=== PATIENT | female | born 1945 | race American Indian/Alaskan Native ===

== ENCOUNTER 2021-02-21 02:44 | Emergency (ER) | payer MEDICARE ==
[2021-02-21 03:48] LABS: Basophils # (Auto) 0.1 K/mm3 (0.0-0.1); Basophils % (Auto) 0.8 % (0.0-1.8); Eosinophils # (Auto) 0.3 K/mm3 (0.0-0.4); Eosinophils % (Auto) 4.9 % (0.0-4.3); Hematocrit 32.1 % (30.3-42.9); Hemoglobin 10.2 gm/dl (10.1-14.3); Lymphocytes # (Auto) 1.3 K/mm3 (1.2-5.4); Lymphocytes % (Auto) 19.3 % (13.4-35.0); Mean Corpuscular HGB Conc 32 % (30-34); Mean Corpuscular Volume 95 fl (79-97); Monocytes # (Auto) 0.7 K/mm3 (0.0-0.8); Monocytes % (Auto) 10.7 % (0.0-7.3); Platelet Count 247 K/mm3 (140-440); Red Blood Count 3.39 M/mm3 (3.65-5.03); Red Cell Distribution Width 15.7 % (13.2-15.2)
[2021-02-21 04:11] LABS: Albumin 4.1 g/dL (3.9-5); Calcium 9.1 mg/dL (8.4-10.2)
[2021-02-21] MEDS ORDERED: SODIUM CHLORIDE 0.9% 500 ML 500 ML IV ONE (04:58)
--- NOTE | 2021-02-21 05:42 | XRay Report ---
CHEST 2 VIEWS INDICATION / CLINICAL INFORMATION: bilat le edema. COMPARISON: None available. FINDINGS: SUPPORT DEVICES: A left pacemaker is in good position. HEART / MEDIASTINUM: Mild cardiomegaly without other significant abnormalities. LUNGS / PLEURA: There are generalized bilateral interstitial opacities. No significant pleural effusi on. No pneumothorax. ADDITIONAL FINDINGS: No significant additional findings. IMPRESSION: 1. Suspected mild interstitial edema. 2. Mild cardiomegaly. Signer Name: Bertin Ly MD Signed: 02/21/2021 5:37 AM Workstation Name: [id number]
--- NOTE | 2021-02-21 07:43 | Emergency Department Report ---
ED Extremity Problem HPI - General Chief complaint: Extremity Injury, Lower Stated complaint: LEG PAIN Time Seen by Provider: 02/21/21 07:25 Source: patient, EMS Mode of arrival: Stretcher Limitations: No Limitations - History of Present Illness Initial comments: 75-year-old female, history of hypertension, dementia, presents to ED with bilateral leg pain. Patient states "I get this every now and then." Patient states she has a sensation of [id number] going up and down her entire leg, bilaterally. Patient states this has been happening off and on for "years." She states she told her daughter that she was having the pain, so her daughter called 911 and an ambulance transported her here. Patient states she did not take anything for pain at home. I asked patient what usually helps her pain, patient states, "Usually I just wait for it to go away." Patient has no other complaints. She denies any falls or trauma to the lower extremities. Patient states she is ambulatory. MD Complaint: extremity pain -: days(s) (1) Location: bilateral lower extremity History of Same: Yes -: No arthralgia, No fever, No associated dyspnea, No associated chest pain Quality: other (pins and needles) Consistency: intermittent Improves with: nothing Worsens with: nothing Associated Symptoms: denies other symptoms. denies: chest pain, shortness of breath, fever, arthralgias - Related Data Home Medications Medication Instructions Recorded Confirmed Last Taken Cetirizine HCl [ZyrTEC 10mg cap] 10 mg PO QDAY 02/21/21 02/21/21 Unknown Cholecalciferol Vit D3 [Vitamin D3 1,000 unit PO QDAY 02/21/21 02/21/21 Unknown 1,000 UNIT TAB] Donepezil HCl [Donepezil HCl Odt] 10 mg PO QDAY 02/21/21 02/21/21 Unknown Escitalopram Oxalate [Lexapro] 20 mg PO QDAY 02/21/21 02/21/21 Unknown Losartan [Cozaar] 100 mg PO QDAY 02/21/21 02/21/21 Unknown Metoprolol Tartrate [Lopressor] 50 mg PO BID 02/21/21 02/21/21 Unknown Potassium Chloride 10 meq PO QDAY 02/21/21 02/21/21 Unknown Valsartan [Diovan] 40 mg PO QDAY 02/21/21 02/21/21 Unknown amLODIPine [Norvasc] 10 mg PO DAILY 02/21/21 02/21/21 Unknown traZODone [Desyrel] 50 mg PO QHS 02/21/21 02/21/21 Unknown Previous Rx's Medication Instructions Recorded Last Taken Type Naproxen [Naprosyn] 500 mg PO BID #20 tablet 02/21/21 Unknown Rx Allergies Allergy/AdvReac Type Severity Reaction Status Date / Time No Known Allergies Allergy Unverified 02/21/21 03:07 ED Review of Systems ROS: Stated complaint: LEG PAIN Other details as noted in HPI Comment: All other systems reviewed and negative Constitutional: denies: chills, fever Respiratory: denies: shortness of breath Cardiovascular: denies: chest pain Musculoskeletal: as per HPI Neurological: denies: weakness ED Past Medical Hx - Past Medical History Hx Hypertension: Yes Hx Congestive Heart Failure: Yes Hx Diabetes: Yes - Surgical History Additional Surgical History: abdominal surgery, bilateral leg fx - Social History Smoking Status: Never Smoker - Medications Home Medications: Home Medications Medication Instructions Recorded Confirmed Last Taken Type Cetirizine HCl [ZyrTEC 10mg cap] 10 mg PO QDAY 02/21/21 02/21/21 Unknown History Cholecalciferol Vit D3 [Vitamin D3 1,000 unit PO QDAY 02/21/21 02/21/21 Unknown History 1,000 UNIT TAB] Donepezil HCl [Donepezil HCl Odt] 10 mg PO QDAY 02/21/21 02/21/21 Unknown Histor y Escitalopram Oxalate [Lexapro] 20 mg PO QDAY 02/21/21 02/21/21 Unknown History Losartan [Cozaar] 100 mg PO QDAY 02/21/21 02/21/21 Unknown History Metoprolol Tartrate [Lopressor] 50 mg PO BID 02/21/21 02/21/21 Unknown History Naproxen [Naprosyn] 500 mg PO BID #20 tablet 02/21/21 Unknown Rx Potassium Chloride 10 meq PO QDAY 02/21/21 02/21/21 Unknown History Valsartan [Diovan] 40 mg PO QDAY 02/21/21 02/21/21 Unknown History amLODIPine [Norvasc] 10 mg PO DAILY 02/21/21 02/21/21 Unknown History traZODone [Desyrel] 50 mg PO QHS 02/21/21 02/21/21 Unknown History ED Physical Exam - General Limitations: No Limitations General appearance: alert, in no apparent distress, obese - Head Head exam: Present: atraumatic, normocephalic - Eye Eye exam: Present: normal appearance, EOMI - ENT ENT exam: Present: mucous membranes moist - Neck Neck exam: Present: normal inspection - Respiratory Respiratory exam: Present: normal lung sounds bilaterally. Absent: respiratory distress - Cardiovascular Cardiovascular Exam: Present: regular rate, normal rhythm - GI/Abdominal GI/Abdominal exam: Present: soft. Absent: distended, tenderness - Extremities Exam Extremities exam: Present: normal inspection, full ROM, other (Patient ambulates without difficulty). Absent: tenderness, joint swelling, calf tenderness - Neurological Exam Neurological exam: Present: alert, oriented X3, normal gait - Psychiatric Psychiatric exam: Present: normal affect, normal mood - Skin Skin exam: Present: warm, dry, intact, normal color ED Course Vital Signs 02/21/21 02/21/21 02/21/21 03:11 06:35 06:45 Temperature 98.2 F 98.1 F Pulse Rate 71 60 Respiratory 16 11 L Rate Blood Pressure 154/97 183/98 O2 Sat by Pulse 96 99 Oximetry 02/21/21 02/21/21 02/21/21 07:01 07:31 08:01 Temperature Pulse Rate 60 60 60 Respiratory 15 14 Rate Blood Pressure 166/89 166/89 165/90 O2 Sat by Pulse 100 100 99 Oximetry 02/21/21 08:31 Temperature Pulse Rate 62 Respiratory 12 Rate Blood Pressure 170/91 O2 Sat by Pulse 99 Oximetry ED Medical Decision Making - Lab Data Result diagrams: 02/21/21 03:20 02/21/21 03:20 - EKG Data -: EKG Interpreted by [facility] EKG shows normal: sinus rhythm, axis, intervals, QRS complexes, ST-T waves Rate: normal - EKG Data Interpretation: no acute changes - Radiology Data Radiology results: report reviewed, image reviewed - Medical Decision Making 75-year-old female with pain to bilateral legs, described as [id number] sensation. Patient states it is not uncommon for her to get this pain in her legs. Work-up is unremarkable. Patient is ambulatory without assistance, walked to the bathroom and back. Patient given Motrin here in the ED. She will be discharged at this time. Outpatient follow-up advised, return precautions given. Critical care attestation.: If time is entered above; I have spent that time in minutes in the direct care of this critically ill patient, excluding procedure time. ED Disposition Clinical Impression: Lower extremity pain, bilateral Disposition: TO HOME OR SELFCARE Is pt being admited?: No Condition: Stable Instructions: Pain Without a Known Cause Prescriptions: Naproxen [Naprosyn] 500 mg PO BID #20 tablet Referrals: RODERICK VAUGHN MD [Primary Care Provider] - 3-5 Days [facility] [Provider Group] - 3-5 Days PRIMARY [facility], [Referring] - 3-5 Days Time of Disposition: 07:57
[2021-02-21] MEDS ORDERED: IBUPROFEN 800 MG TAB PO ONE (07:47)
[2021-02-21 08:37] VITALS: BP 170/91
--- NOTE | 2021-02-21 10:52 | Electrocardiograph Report ---
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
== END 2021-02-21 09:10 | disposition home or self-care (01) ==
LOC: ED 02:44
DX: M79.605 Pain in left leg (principal); M79.604 Pain in right leg; I11.0 Hypertensive heart disease with heart failure; I50.9 Heart failure, unspecified; E11.9 Type 2 diabetes mellitus without complications; Z98.890 Other specified postprocedural states; Z79.899 Other long term (current) drug therapy
CPT/HCPCS: 36415; 71046; 80053; 83880; 85025; 93005; 99284; J7040